=== PATIENT | female | born 1960 | race Caucasian/White ===

== ENCOUNTER → 2024-01-22 08:09 | Outpatient (REF) | payer OTHER, SELFPAY | LOC: WDC 08:09 | PROVIDERS: ATTENDING PHYSICIAN Obstetrics & Gynecology | DX: Z12.31 Encounter for screening mammogram for malignant neoplasm of breast (principal) | CPT/HCPCS: 77063; 77067 ==

== ENCOUNTER → 2024-02-21 07:28 | Outpatient (REF) | payer OTHER, SELFPAY | LOC: RAD 07:28 | PROVIDERS: ATTENDING PHYSICIAN Nurse Practitioner Family | DX: M25.571 Pain in right ankle and joints of right foot (principal) | CPT/HCPCS: 73610 ==

== ENCOUNTER → 2025-03-03 06:52 | Outpatient (REF) | payer OTHER, SELFPAY | LOC: HWRAD 06:52 | PROVIDERS: ATTENDING PHYSICIAN Internal Medicine Hematology & Oncology; FAMILY PHYSICIAN Family Medicine | DX: D47.3 Essential (hemorrhagic) thrombocythemia (principal); N95.1 Menopausal and female climacteric states | CPT/HCPCS: 76705 ==

== ENCOUNTER → 2025-03-04 06:39 | Outpatient (REF) | payer OTHER, SELFPAY | LOC: RAD 06:39 | PROVIDERS: ATTENDING PHYSICIAN Internal Medicine Hematology & Oncology; FAMILY PHYSICIAN Nurse Practitioner Family | DX: D47.3 Essential (hemorrhagic) thrombocythemia (principal); N95.1 Menopausal and female climacteric states | CPT/HCPCS: 70470; Q9967 ==

== ENCOUNTER → 2025-03-10 08:30 | Outpatient (REF) | payer OTHER, SELFPAY ==
[2025-03-10] MEDS: ATIVAN 0.5 MG PO ×2 (09:03→09:38)
[2025-03-10 09:06] LABS: Hematocrit 28.1 % (37.0-47.0); Hemoglobin 8.9 g/dL (12.0-16.0); Mean Corp Hgb Conc. 31.7 g/dL (33.0-37.0); Mean Corpuscular Volume 93.0 fL (81.0-99.0); Platelet Count 214 10^3/uL (130-400); Red Cell Dist. Width 17.2 % (11.5-14.5)
[2025-03-10 09:08] LABS: INR 1.01; PT 13.6 Sec (11.4-14.6)
[2025-03-10 09:09] VITALS: BP 107/67; BP_SYST 78
[2025-03-10 09:35] LABS: Nucleated Red Blood Cells % 1.6 %
[2025-03-10 11:22] VITALS: BP 107/66; BP_SYST 76
[2025-03-10 11:37] VITALS: BP 111/62
== END ==
LOC: RADI 08:30
PROVIDERS: ATTENDING PHYSICIAN Internal Medicine Hematology & Oncology; FAMILY PHYSICIAN Family Medicine
DX: D47.3 Essential (hemorrhagic) thrombocythemia (principal)
CPT/HCPCS: 38221; 77012; 85025; 85610; 88305; 88311; 88312; 88313